=== PATIENT | male | born 1990 | race Caucasian/White ===

== ENCOUNTER 2018-01-18 16:50 | Emergency (ER) | payer MEDICAID ==
[~2018-01-18] VITALS: Ht 172.7 cm; Wt 103.0 kg
[2018-01-18] MEDS ORDERED: normal saline 1000ML IV soln IVB ONE (16:55)
[2018-01-18 17:47] LABS: CLARITY,URINE CLEAR (Clear); COLOR,URINE YELLOW (Yellow); GLUCOSE, URINE NEGATIVE (Neg); KETONES,URINE NEGATIVE (Neg); LEUKOCYTE ESTERASE ,URINE NEGATIVE (Neg); NITRITES, URINE NEGATIVE (Neg); OCCULT BLOOD,URINE NEGATIVE (Neg); PH,URINE 5.5 (4.8-8.0); PROTEIN,URINE NEGATIVE (Neg); UROBILINOGEN,URINE 0.2 E.U/dL (0.2-1.0)
[2018-01-18 17:52] LABS: UA COLLECTION TYPE CLN CATCH MIDSTREAM
[2018-01-18 17:53] LABS: BASOPHILS % (AUTO) 0.6 % (0-1); EOSINOPHILS # (AUTO) 0.3 X10'3 (0-0.9); EOSINOPHILS % (AUTO) 3.6 % (0-6); HEMATOCRIT 46.9 % (42.0-52.0); LYMPHOCYTES # (AUTO) 2.1 X10'3 (1.1-4.8); LYMPHOCYTES % (AUTO) 24.8 % (21-51); MEAN CORPUSCULAR HEMOGLOBIN 29.8 PG (27.0-31.0); MEAN CORPUSCULAR HGB CONC 34.1 % (33.0-36.5); MEAN CORPUSCULAR VOLUME 87.3 FL (78-98); MEAN PLATELET VOLUME 9.5 FL (7.4-10.4); MONOCYTES # (AUTO) 0.6 X10'3 (0-0.9); MONOCYTES % (AUTO) 7.5 % (2-12); NEUTROPHILS # (AUTO) 5.3 X10'3 (1.8-7.7); NEUTROPHILS % (AUTO) 63.5 % (42-75); PLATELET COUNT 255 X10'3 (140-440); RED BLOOD COUNT 5.37 X10'6 (4.70-6.10); RED CELL DISTRIBUTION WIDTH 13.8 % (11.5-14.5); WHITE BLOOD COUNT 8.3 X10'3 (4.5-11.0)
[2018-01-18 18:03] LABS: URINE AMPHETAMINE SCREEN NEGATIVE (Neg); URINE BARBITUATE SCREEN NEGATIVE (Neg); URINE BENZODIAZEPINES SCREEN NEGATIVE (Neg); URINE CANNABINOID SCREEN NEGATIVE (Neg); URINE COCAINE SCREEN NEGATIVE (Neg); URINE METHADONE SCREEN NEGATIVE (Neg); URINE OPIATE SCREEN NEGATIVE (Neg); URINE PHENCYCLIDINE SCREEN NEGATIVE (Neg)
[2018-01-18 18:03] LABS: PARTIAL THROMBOPLASTIN TIME 32 SECONDS (22-32); PROTHROMBIN TIME 10.7 SECONDS (9.0-12.0)
[2018-01-18 18:11] LABS: ALANINE AMINOTRANSFERASE 50 U/L (12-78); ALBUMIN 3.8 G/DL (3.4-5.0); ALKALINE PHOSPHATASE 87 IU/L (46-116); ANION GAP 10 (8-16); ASPARTATE AMINO TRANSFERASE 21 U/L (10-37); BILIRUBIN,TOTAL 1.4 MG/DL (0.1-1.0); BLOOD UREA NITROGEN 13 MG/DL (7-18); BUN/CREATININE RATIO 13.4 (5.4-32.0); CALCIUM 8.7 MG/DL (8.5-10.1); CHLORIDE 108 MMOL/L (99-107); CREATININE 0.97 MG/DL (0.60-1.10); GLUCOSE 99 MG/DL (70-104); POTASSIUM 3.6 MMOL/L (3.5-5.1); SODIUM 146 MMOL/L (135-145); TOTAL CARBON DIOXIDE 27.7 MMOL/L (24-32); TOTAL PROTEIN 7.8 G/DL (6.4-8.2); TROPONIN I < 0.04 NG/ML (0.0-0.05); eGFR > 90 ML/MIN
[2018-01-18 18:13] LABS: ACETAMINOPHEN < 2.0 UG/ML (10-30); ETHANOL < 0.010 GM/DL (0.0-0.010)
[2018-01-18] MEDS ORDERED: MULT-977 PO (20:58)
[2018-01-18] MEDS ORDERED: OMEG-92 PO (20:58)
[2018-01-18] MEDS ORDERED: HYDR50TA65 PO (20:58)
[2018-01-18] MEDS ORDERED: ARIP5TAB4 PO (20:58)
[2018-01-18] MEDS ORDERED: MULT-269 PO (20:58)
[2018-01-20 06:04] VITALS: BP 124/62
[2018-01-20] MEDS ORDERED: hydrOXYzine 25 MG tablet PO SCH (08:00)
[2018-01-20] MEDS ORDERED: MULTIVITS MIN PO SCH (08:00)
[2018-01-20] MEDS ORDERED: aripiprazole 5mg tablet PO SCH (08:00)
[2018-01-20] MEDS ORDERED: multivitamins, therapeutics tablet PO SCH (08:00)
[2018-01-20] MEDS ORDERED: IRON PO SCH (08:00)
[2018-01-20] MEDS ORDERED: HERB PO SCH (08:00)
[2018-01-20] MEDS ORDERED: OMEGA-3/DHA/EPA/FISH OIL 1 EACH CAPSULE.DR PO SCH (08:00)
[2018-01-20] MEDS ORDERED: [UNRECOGNIZED DRUG - OTHER] PO SCH (08:00)
== END 2018-01-20 13:15 ==
LOC: ER 16:51
DX: T43.212A Poisoning by selective serotonin and norepinephrine reuptake inhibitors, intentional self-harm, initial encounter (principal); R45.851 Suicidal ideations; J32.0 Chronic maxillary sinusitis; J32.3 Chronic sphenoidal sinusitis; Y92.89 Other specified places as the place of occurrence of the external cause
CPT/HCPCS: 36415; 70450; 71045; 80053; 80305; 80320; 80329; 81003; 82140; 83735; 84443; 84484; 85025; 85610; 85730; 93005; 96360; 99285; J7030; Q0177

== ENCOUNTER 2018-01-30 20:29 | Emergency (ER) | payer MEDICAID ==
[~2018-01-30] VITALS: Ht 172.7 cm; Wt 85.0 kg
[~2018-01-30 20:29] MED LIST: ARIP5TAB4 PO; HYDR50TA65 PO; MULT-269 PO; MULT-977 PO; OMEG-92 PO
[2018-01-30] MEDS ORDERED: LORazepam 2 mg/ml vial IM ONE (23:25)
[2018-01-30 23:41] VITALS: BP 159/78
== END 2018-01-30 23:42 | disposition home or self-care (01) ==
LOC: ER 20:29
DX: T50.995A Adverse effect of other drugs, medicaments and biological substances, initial encounter (principal); F41.9 Anxiety disorder, unspecified; F31.9 Bipolar disorder, unspecified; Z79.899 Other long term (current) drug therapy; Y92.89 Other specified places as the place of occurrence of the external cause
CPT/HCPCS: 96372; 99284; J2060